=== PATIENT | female | born 1975 | race African-American/Black ===

== ENCOUNTER → 2021-11-05 | Outpatient (CLI) | payer OTHER | END | disposition home or self-care (01) | LOC: RADMN 13:36 | PROVIDERS: ATTEND Family Medicine | DX: M51.27 Other intervertebral disc displacement, lumbosacral region (principal); M48.07 Spinal stenosis, lumbosacral region; R29.890 Loss of height; M54.30 Sciatica, unspecified side | CPT/HCPCS: 72148 ==